=== PATIENT | female | born 2000 | race African-American/Black ===

== ENCOUNTER 2021-11-17 19:04 | Emergency (ER) | payer OTHER, SELFPAY ==
[2021-11-17 19:16] VITALS: BP 121/50; PULSE 68; RESP 16; TEMP 36.8; O2SAT 100
--- NOTE | 2021-11-17 19:16 | ED.GENADULT ---
HPI - General Adult General Chief complaint: Anxiety Stated complaint: chest palpitations Time Seen by Provider: 11/17/21 19:16 Source: patient Mode of arrival: ambulatory Limitations: no limitations History of Present Illness HPI narrative: 21 y/o female presented for c/o fluttering sensation in chest with occasional tightness and nausea for about 8 hours. Endorses history of anxiety, depression and bipolar. States it feels like butterflies. States it feels worse today than in the past. Endorses increased stress at home. Also endorses discharge from [facility] about 1 month ago at which time lamotrigine was increased. Denies SI/HI. Endorses she is safe at home. Related Data Home Medications Medication Instructions Recorded Confirmed lamotrigine 11/17/21 Allergies Allergy/AdvReac Type Severity Reaction Status Date / Time No Known Allergies Allergy Unverified 01/30/19 16:11 Review of Systems Review of Systems: CONSTITUTIONAL: Denies body aches, fever, chills, or sweats. EYES: Denies visual changes, redness, or discharge. ENT: Denies rhinorrhea, congestion, sore throat, or otalgia. CARDIOVASCULAR: Denies chest pain, or edema. RESPIRATORY: Denies cough or dyspnea. GASTROINTESTINAL: Denies abdominal pain, vomiting, or diarrhea. GENITOURINARY: Denies dysuria or hematuria. SKIN: Denies rash, itching, or wounds. MUSCULOSKELETAL: Denies back pain, joint pain, or myalgia. NEUROLOGIC: Denies headache, numbness, tingling, or weakness. PSYCH: endorses depression and anxiety. All systems reviewed & are unremarkable except as noted in HPI and below [facility] Comments At time of signature, I have reviewed and agree with nursing past medical, surgical, social and family history unless otherwise noted. Please see nursing chart for further information. There is no relevant family history pertinent to the presenting complaint Exam Narrative: GENERAL: Appears anxious HEAD: Normocephalic, atraumatic. EYES: EOMI. ENT: Mucous membranes pink and moist. NECK: Normal AROM. Supple. No lymphadenopathy. CHEST: No respiratory distress. Clear to auscultation. HEART: Regular rate and rhythm. No murmur appreciated. ABDOMEN: Soft, nontender, nondistended, normal active bowel sounds. MUSCULOSKELETAL: No bony tenderness. EXTREMITIES: Normal range of motion. No edema. SKIN: Warm, dry, no rash. Capillary refill normal. Normal skin turgor. NEURO: No focal deficits. Alert and oriented x3. Gait steady. PSYCH: Anxious and flat Course Course Emergency Course: Patient is aware of diagnosis, understands and agrees to treatment plan. Anticipatory guidance given. Patient agrees to follow-up as directed and is aware of reasons to seek care at the emergency department. Portions of this record may have been created with voice recognition software Level of Care: Express Care Visit Vital Signs Vital signs: Vital Signs Temperature 98.3 F 11/17/21 19:16 Pulse Rate 68 11/17/21 19:16 Respiratory Rate 16 11/17/21 19:16 Blood Pressure 121/50 L 11/17/21 19:16 Pulse Oximetry 100 11/17/21 19:16 Temperature 98.3 F 11/17/21 19:16 Pulse Rate 68 11/17/21 19:16 Respiratory Rate 16 11/17/21 19:16 Blood Pressure 121/50 L 11/17/21 19:16 Pulse Oximetry 100 11/17/21 19:16 Medical Decision Making MDM Narrative Medical decision making narrative: Patient is describing burning sensation in abdomen with the associated anxiety. She was given Pepcid and Zofran. Upon reassessment she reported feeling better. She is advised on follow-up with psychiatrist/therapist. She denies SI/HI. She is stable and appropriate for outpatient treatment follow-up. She is aware to go to the ER for any worsening symptoms or concerns Differential Diagnosis Differential Diagnosis: Anxiety, atrial fibrillation, PE, CAD Vital Signs Vital Signs: Vital Signs Temperature 98.3 F 11/17/21 19:16 Pulse Rate 68 11/17/21 19:16 Respira
[2021-11-17] MEDS: ONDANSETRON HCL ODT 4 MG TABLET SUBLINGUAL (19:41)
[2021-11-17] MEDS: FAMOTIDINE 20 MG TABLET PO (19:41)
--- NOTE | 2021-11-17 19:50 | PC.NURSE ---
did vomit small amount of clear emesis. was given pillow and blanket for comfort. stated father is outside in truck with her 3 kids.
== END 2021-11-17 20:20 | disposition home or self-care (01) ==
PROVIDERS: Emergency Provider Nurse Practitioner Family
DX: F41.9 Anxiety disorder, unspecified (principal); D57.1 Sickle-cell disease without crisis
CPT/HCPCS: 99213; A9270; G0463

== ENCOUNTER 2022-09-09 18:09 | Emergency (ER) | payer OTHER, SELFPAY ==
[2022-09-09 18:21] VITALS: BP 102/61; PULSE 62; RESP 12; TEMP 36.6; O2SAT 100
--- NOTE | 2022-09-09 18:49 | ED.ABDPAIN ---
HPI - Abdominal Pain General Chief Complaint: Nausea/Vomiting/Diarrhea Stated Complaint: vomiting blood Time Seen by Provider: 09/09/22 18:41 Source: patient Mode of arrival: ambulatory Limitations: no limitations History of Present Illness HPI narrative: Patient presents today complaining of nausea, vomiting, and abdominal pain. She also reports bloody sputum. Her symptoms began 3-4 days ago and states she is vomiting, ?nonstop. ? He states she does have blood in her emesis every time she vomits. Reports lower abdominal pain. Denies dysuria, hematuria, frequency or urgency. Denies vaginal bleeding. She currently rates her abdominal pain 01/30. LMP was July 25. Related Data Home Medications Medication Instructions Recorded Confirmed No Home Medications 09/09/22 09/09/22 Allergies Allergy/AdvReac Type Severity Reaction Status Date / Time No Known Allergies Allergy Verified 09/09/22 18:26 Review of Systems Review of Systems: CONSTITUTIONAL: Denies body aches, fever, chills, or sweats. EYES: Denies visual changes, redness, or discharge. ENT: Denies rhinorrhea, congestion, sore throat, or otalgia. CARDIOVASCULAR: Denies chest pain, palpitations, or edema. RESPIRATORY: Denies cough or dyspnea. GASTROINTESTINAL: Denies diarrhea.+ nausea, vomiting, abdominal pain, bloody emesis GENITOURINARY: Denies dysuria or hematuria. SKIN: Denies rash, itching, or wounds. MUSCULOSKELETAL: Denies back pain, joint pain, or myalgia. NEUROLOGIC: Denies headache, numbness, tingling, or weakness. PSYCH: Denies depression or anxiety. [facility] Comments At time of signature, I have reviewed and agree with nursing past medical, surgical, social and family history unless otherwise noted. Please see nursing chart for further information. There is no relevant family history pertinent to the presenting complaint Exam Narrative: GENERAL: Well-appearing, well-nourished, and in no acute distress. HEAD: Normocephalic, atraumatic. EYES: EOMI. No redness or drainage. Conjunctivae normal. ENT: Mucous membranes pink and moist. NECK: Normal AROM. CHEST: No respiratory distress. Clear to auscultation. HEART: Regular rate and rhythm. No murmur appreciated. Normal peripheral pulses. ABDOMEN: Soft, nondistended, normal active bowel sounds.+ patient has epigastric and suprapubic tenderness. The suprapubic tenderness is more significant than the epigastric tenderness. MUSCULOSKELETAL: No bony tenderness. EXTREMITIES: Normal range of motion. No edema. SKIN: Warm, dry, no rash. Capillary refill normal. Normal skin turgor. NEURO: No focal deficits. Alert and oriented x3. Gait steady. PSYCH: Normal affect. No signs of depression or anxiety. Course Course Level of Care: Express Care Visit Vital Signs Vital signs: Vital Signs Temperature 97.9 F 09/09/22 18:21 Pulse Rate 62 09/09/22 18:21 Respiratory Rate 12 09/09/22 18:21 Blood Pressure 102/61 09/09/22 18:21 Pulse Oximetry 100 09/09/22 18:21 Oxygen Delivery Room Air 09/09/22 18:21 Temperature 97.9 F 09/09/22 18:21 Pulse Rate 62 09/09/22 18:21 Respiratory Rate 12 09/09/22 18:21 Blood Pressure 102/61 09/09/22 18:21 Pulse Oximetry 100 09/09/22 18:21 Oxygen Delivery Room Air 09/09/22 18:21 Reviewed Transfer Transfered to: [facility] Transportation: Other (Private vehicle) Transfer rationale: Abdominal pain, positive test, nausea vomiting, bloody emesis Accepting physician: Marco MDM - Abdominal Pain Differential Diagnosis Differential diagnosis: Likely abdominal pain and other (Gastritis, gastroenteritis, , ectopic , UTI, gastric ulcer) Lab Data Attestation: I reviewed the patient's lab results. Lab results narrative: Positive bedside test. Critical Care Time Critical Care Time Critical Care Time: No Discharge Plan Discharge Clinical Impression: Positive test Nausea & vomit
--- NOTE | 2022-09-09 18:53 | PC.NURSE ---
CLIENT SUPPORT ANALYST at bedside discussing positive POC test. CLIENT SUPPORT ANALYST discussing transfer to ER. Pt initially states I probably won't be able to go till tomorrow . CLIENT SUPPORT ANALYST instructed pt that she needs to go to ER tonight to rule out ectopic . Pt verbalized understanding. CLIENT SUPPORT ANALYST calling report to [facility].
== END 2022-09-09 19:12 | disposition short-term general hospital (02) ==
PROVIDERS: Emergency Provider Nurse Practitioner
DX: O26.899 Other specified pregnancy related conditions, unspecified trimester (principal); K92.0 Hematemesis; R10.9 Unspecified abdominal pain; Z3A.00 Weeks of gestation of pregnancy not specified
CPT/HCPCS: 81025; 99202; G0463

== ENCOUNTER 2022-09-09 19:22 | Emergency (ER) | payer OTHER, SELFPAY ==
[2022-09-09 19:46] VITALS: BP 110/60; PULSE 58; RESP 18; TEMP 37.1; O2SAT 100
--- NOTE | 2022-09-09 21:44 | PC.NURSE ---
judge called out to pt 1st at 2102. V[employer]ational [employer] In[employer] saw pt walk outside but she stated that she was just getting air. Attempted to call pt at 2129. Pt not in waiting room.
== END 2022-09-09 21:44 | disposition left against medical advice (07) ==
DX: O21.9 Vomiting of pregnancy, unspecified (principal)
CPT/HCPCS: 99199